=== PATIENT | female | born 1995 | race Caucasian/White ===

== ENCOUNTER 2022-09-10 06:46 | Day surgery (SDC) | payer BC ==
[~2022-09-10 06:46] MED LIST: Lactated Ringers 1,000 ML IV SCH
[2022-09-10 07:15] LABS: HEMATOCRIT 43.5 % (36.0-46.0); HEMOGLOBIN 14.4 g/dL (12.0-16.0); MEAN CORPUSCULAR HEMOGLOBIN 28.9 pg (27.0-32.0); MEAN CORPUSCULAR HGB CONC 33.1 g/dL (31.0-37.0); MEAN CORPUSCULAR VOLUME 87.2 fL (80.0-98.0); MEAN PLATELET VOLUME 8.7 fL (7.40-12.00); RED BLOOD CELL COUNT 4.99 M/uL (4.30-5.90); WHITE BLOOD CELL COUNT,WBC 10.34 K/uL (4.0-11.0)
[2022-09-10] MEDS ORDERED: droPERidol 5 MG/2 ML SDV IVPUSH PRN (07:25)
[2022-09-10] MEDS ORDERED: fentaNYL 50 MCG/ML SDV IVPUSH PRN (07:25)
[2022-09-10] MEDS ORDERED: Metoclopramide 10 MG/2 ML SDV IVPUSH PRN (07:25)
[2022-09-10] MEDS ORDERED: Albuterol 0.083% 2.5 MG/3 ML Neb Soln NEB PRN (07:25)
[2022-09-10] MEDS ORDERED: Morphine 2 MG/ML SYRINGE IVPUSH PRN (07:25)
[2022-09-10] MEDS ORDERED: HYDROmorphone 1 MG/ML Syringe IVPUSH PRN (07:25)
[2022-09-10] MEDS ORDERED: Ondansetron 4 MG/2 ML SDV IVPUSH PRN (07:25)
[2022-09-10] MEDS ORDERED: Naloxone 0.4 MG/ML SDV IVPUSH PRN (07:25)
[2022-09-10] MEDS ORDERED: Propofol 200 MG/20 ML SDV ONE (07:30)
[2022-09-10] MEDS ORDERED: fentaNYL 100 MCG/2 ML SDV ONE ×2 (07:30→08:25)
[2022-09-10] MEDS ORDERED: propofoL 50 ML ONE (07:30)
[2022-09-10 07:46] LABS: ALBUMIN 3.9 g/dL (3.4-5.0); BILIRUBIN TOTAL 0.3 mg/dL (0.2-1.0); CALCIUM 9.1 mg/dL (8.5-10.1); CARBON DIOXIDE,CO2 27.7 mmol/L (21.0-32.0); EST CRCL DRUG DOSING (CG) 68.53 mL/min; PROTEIN TOTAL,TP 7.7 g/dL (6.4-8.2)
[2022-09-10] MEDS ORDERED: Acetaminophen/oxyCODONE 325-5 MG Tab PO PRN (09:10)
[2022-09-10] MEDS ORDERED: Ketorolac 30 MG/ML SDV IVPUSH ONE (09:10)
== END 2022-09-10 10:04 | disposition home or self-care (01) ==
LOC: MW.SDS 06:46
PROVIDERS: ATTEND Obstetrics & Gynecology
DX: N84.0 Polyp of corpus uteri (principal); N83.291 Other ovarian cyst, right side; F41.9 Anxiety disorder, unspecified; F32.A Depression, unspecified; G43.909 Migraine, unspecified, not intractable, without status migrainosus; E66.9 Obesity, unspecified; Z79.84 Long term (current) use of oral hypoglycemic drugs; Z79.899 Other long term (current) drug therapy; Z68.36 Body mass index [BMI] 36.0-36.9, adult
CPT/HCPCS: 36415; 58558; 80053; 81025; 85027; J2704; J3010; J7120; 00952